=== PATIENT | female | born 1940 ===

== ENCOUNTER 2023-02-08 17:40 | Emergency (ER) | payer MEDICARE, BC ==
[~2023-02-08] VITALS: Ht 170.2 cm; Wt 55.0 kg
[~2023-02-08 17:40] MED LIST: ACYC-129 PO; ASPI-611 PO; BIOTIN PO; HYDR-4383 PO; LACT1CAP73 PO; LEVO50TA66 PO; MULT-1141 PO
[2023-02-08 17:44] VITALS: BP 254/123; PULSE 124; RESP 18; TEMP 97.8; O2SAT 98
[2023-02-08] MEDS ORDERED: AMOX-580 PO (17:56)
[2023-02-08] MEDS ORDERED: TETanus/Pertussis (Acell)/Diphther VAC/PF (Tdap-Adult) 0.5ml syringe IMVAC ONE (18:00)
== END 2023-02-08 18:57 | disposition home or self-care (01) ==
LOC: ER 17:40
DX: S61.011A Laceration without foreign body of right thumb without damage to nail, initial encounter (principal); Z87.81 Personal history of (healed) traumatic fracture; Z90.49 Acquired absence of other specified parts of digestive tract; Z79.899 Other long term (current) drug therapy; W54.0XXA Bitten by dog, initial encounter; Y93.89 Activity, other specified; Y92.89 Other specified places as the place of occurrence of the external cause; Y99.8 Other external cause status
CPT/HCPCS: 12001; 90471; 90715; 99283